=== PATIENT | male | born 1980 | race African-American/Black ===

== ENCOUNTER 2020-02-22 22:49 | Emergency (ER) | payer SELFPAY ==
[2020-02-22] MEDS ORDERED: Sodium Chloride 0.9% 10 ML Syringe FLUSH PRN (23:39)
[2020-02-22] MEDS ORDERED: Sodium Chloride 0.9% 2.5 ML Syringe FLUSH PRN ×2 (23:39)
--- NOTE | 2020-02-23 00:06 | EDM.PDOC ---
ED HPI GENERAL MEDICAL PROBLEM - General Chief Complaint: Cardiovascular Problem Stated Complaint: HIGH BP Time Seen by Provider: 02/22/20 23:28 - History of Present Illness INITIAL COMMENTS - FREE TEXT/NARRATIVE: History of present illness: Patient presents with concerns over his blood pressure he states that he is a diabetic and has high blood pressure but he does not take any medications. He became dizzy yesterday which she describes as when he got up he almost passed out and he was having some mild frontal headache off and on it was atraumatic nonfebrile he states that his blood pressure was high at home on his monitor that he has at home and he was concerned so he came to the emergency department. He denies any specific chest pain no specific shortness of breath no abdominal pain no back pain. Nothing seems to make this better or worse Review of systems: As per history of present illness and below otherwise all systems reviewed and negative. Past medical history: As per history of present illness and as reviewed below otherwise noncontributory. Surgical history: As per history of present illness and as reviewed below otherwise noncontributory. Social history: No reported history of drug or alcohol abuse. Family history: As per history of present illness and as reviewed below otherwise noncontributory. Physical exam: HEENT: Atraumatic, normocephalic, pupils reactive, negative for conjunctival pallor or scleral icterus, mucous membranes moist, throat clear, neck supple, nontender, trachea midline. Lungs: Clear to auscultation, breath sounds equal bilaterally, chest nontender. Heart: S1S2, regular, negative for clicks, rubs, or JVD. Abdomen: Soft, nondistended, nontender. Negative for masses or hepatosplenomegaly. Negative for costovertebral tenderness. Pelvis: Stable nontender. Genitourinary: Deferred. Rectal: Deferred. Extremities: Atraumatic, negative for cords or calf pain. Neurovascular unremarkable. Neuro: Awake, alert, oriented. Cranial nerves II through XII unremarkable. Cerebellum unremarkable. Motor and sensory unremarkable throughout. Exam nonfocal. Diagnostics: [] Therapeutics: [] Impression: [] Plan: EKG cardiac work-up to assess the patient for his near syncopal event. [] Definitive disposition and diagnosis as appropriate pending reevaluation and review of above. head Pain Score (Numeric/FACES): 4 - Related Data Allergies Allergy/AdvReac Type Severity Reaction Status Date / Time No Known Allergies Allergy Verified 02/22/20 23:02 Home Meds: Home Meds lisinopriL [Lisinopril] 10 mg PO DAILY #30 tablet 02/23/20 [Rx] metFORMIN [Glucophage] 500 mg PO BIDMEALS #60 tab 02/23/20 [Rx] Past Medical History - Past Health History Medical/Surgical History: Denies Medical/Surgical History Cardiovascular History: Reports: None, Hypertension Respiratory History: Reports: None Gastrointestinal History: Reports: None Genitourinary History: Reports: None Musculoskeletal History: Reports: None Psychiatric History: Reports: None Endocrine/Metabolic History: Reports: Diabetes, Type II - Infectious Disease History Infectious Disease History: Reports: None Social & Family History - Family History Family Medical History: Noncontributory - Tobacco Use Smoking Status *Q: Current Every Day Smoker Years of Tobacco use: 20 Packs/Tins Daily: 0.5 - Caffeine Use Caffeine Use: Reports: Energy Drinks - Recreational Drug Use Recreational Drug Use: No - Living Situation & Occupation Living situation: Reports: Single Occupation: Unemployed (currently has no job,) ED ROS GENERAL - Review of Systems Review Of Systems: See Below ED EXAM, GENERAL - Physical Exam Exam: See Below EKG INTERPRETATION EKG Interpretation Comments: EKG is normal sinus rhythm rate of 69 bpm some elevated T waves in V2 and V3 these are isolated no ischemic changes read and interpreted by me Course - Vital Signs Text/Narrative:: One-view portable chest read and interpreted by me no acute cardiopulmonary pathology is evident Patient is noted to be hyperglycemic we were going to start him on some insulin and fluids in the ED he will be discharged home on metformin and lisinopril he is to follow-up this week with primary care. As well as the educator senior clinical. Last Recorded V/S: Last Vital Signs Temp 35.8 C L 02/22/20 22:58 Pulse 88 02/22/20 23:52 Resp 18 02/22/20 23:52 BP 148/95 H 02/22/20 23:52 Pulse Ox 98 02/22/20 23:52 - Orders/Labs/Meds Orders: Active Orders 24 hr Category Date Time Status Blood Glucose Check, Bedside [RC] ONETIME Care 02/23/20 01:55 Active EKG Documentation Completion [RC] STAT Care 02/22/20 23:39 Active Sodium Chloride 0.9% [Saline Flush] Med 02/22/20 23:39 Active 10 ml FLUSH ASDIRECTED PRN Sodium Chloride 0.9% [Saline Flush] Med 02/22/20 23:39 Active 2.5 ml FLUSH ASDIRECTED PRN Sodium Chloride 0.9% [Saline Flush] Med 02/22/20 23:39 Active 2.5 ml FLUSH ASDIRECTED PRN Saline Lock Insert [OM.PC] Stat Oth 02/22/20 23:39 Ordered Medication Orders Sodium Chloride (Saline Flush) 2.5 ml FLUSH ASDIRECTED PRN PRN Reason: Keep Vein Open Sodium Chloride (Saline Flush) 2.5 ml FLUSH ASDIRECTED PRN PRN Reason: Keep Vein Open Sodium Chloride (Saline Flush) 10 ml FLUSH ASDIRECTED PRN PRN Reason: Keep Vein Open Labs: Laboratory Tests 02/22/20 02/22/20 02/23/20 Range/Units 23:59 23:59 01:59 WBC 8.31 (4.0-11.0) K/uL RBC 4.86 (4.50-5.90) M/uL Hgb 13.7 (13.0-17.0) g/dL Hct 43.2 (38.0-50.0) % MCV 88.9 (80.0-98.0) fL MCH 28.2 (27.0-32.0) pg MCHC 31.7 (31.0-37.0) g/dL RDW Std Deviation 40.3 (28.0-62.0) fl RDW Coeff of Venecia 13 (11.0-15.0) % Plt Count 281 (150-400) K/uL MPV 10.50 (7.40-12.00) fL Neut % (Auto) 51.9 (48.0-80.0) % Lymph % (Auto) 40.1 H (16.0-40.0) % Rolette % (Auto) 5.9 (0.0-15.0) % Eos % (Auto) 1.9 (0.0-7.0) % Baso % (Auto) 0.2 (0.0-1.5) % Neut # (Auto) 4.3 (1.4-5.7) K/uL Lymph # (Auto) 3.3 H (0.6-2.4) K/uL Rolette # (Auto) 0.5 (0.0-0.8) K/uL Eos # (Auto) 0.2 (0.0-0.7) K/uL Baso # (Auto) 0.0 (0.0-0.1) K/uL Nucleated RBC % 0.0 /100WBC Nucleated RBCs # 0 K/uL Sodium 135 L (136-148) mmol/L Potassium 4.4 (3.5-5.1) mmol/L Chloride 99 (98-107) mmol/L Carbon Dioxide 26.6 (21.0-32.0) mmol/L BUN 15 (7.0-18.0) mg/dL Creatinine 1.2 (0.8-1.3) mg/dL Est Cr Clr Drug Dosing 88.90 mL/min Estimated GFR (MDRD) > 60.0 ml/min Glucose 392 H (74-106) mg/dL POC Glucose 246 H (60-110) mg/dL Calcium 8.6 (8.5-10.1) mg/dL Total Bilirubin 0.6 (0.2-1.0) mg/dL AST 18 (15-37) IU/L ALT 30 (14-63) IU/L Alkaline Phosphatase 119 H (46-116) U/L Troponin I < 0.050 (0.000-0.056) ng/mL Total Protein 7.8 (6.4-8.2) g/dL Albumin 3.6 (3.4-5.0) g/dL Globulin 4.2 H (2.6-4.0) g/dL Albumin/Globulin Ratio 0.9 (0.9-1.6) Meds: Medications Generic Name Dose Route Start Last Admin Trade Name Freq PRN Reason Stop Dose Admin Sodium Chloride 2.5 ml 02/22/20 23:39 Saline Flush FLUSH ASDIRECTED PRN Keep Vein Open Sodium Chloride 2.5 ml 02/22/20 23:39 Saline Flush FLUSH ASDIRECTED PRN Keep Vein Open Sodium Chloride 10 ml 02/22/20 23:39 Saline Flush FLUSH ASDIRECTED PRN Keep Vein Open Discontinued Medications Generic Name Dose Route Start Last Admin Trade Name Freq PRN Reason Stop Dose Admin Aspirin 324 mg 02/22/20 23:39 02/23/20 00:56 Aspirin PO 02/22/20 23:40 324 mg ONETIME ONE Administration Sodium Chloride 1,000 mls @ 999 mls/hr 02/23/20 00:40 02/23/20 00:52 Normal Saline IV 02/23/20 01:40 999 mls/hr .Bolus ONE Administration Insulin Human Isoph/Insulin Regular 12 unit 02/23/20 00:40 02/23/20 00:52 Novolin 70-30 SUBCUT 02/23/20 00:41 Not Given ONETIME ONE Insulin Human Regular 8 unit 02/23/20 00:47 02/23/20 00:52 Novolin R SUBCUT 02/23/20 00:48 8 unit ONETIME ONE Administration Protocol Departure - Departure Time of Disposition: 02:03 Disposition: Home, Self-Care 01 Condition: Good Clinical Impression: Type 2 diabetes mellitus, Hypertension Prescriptions: metFORMIN [Glucophage] 500 mg PO BIDMEALS #60 tab lisinopriL [Lisinopril] 10 mg PO DAILY #30 tablet Instructions: Type 2 Diabetes Mellitus, Diagnosis, Adult, Hypertension, Adult Referrals: PCP,None [Primary Care Provider] - Forms: ED Department Discharge Additional Instructions: The following information is given to patients seen in the emergency department who are being discharged to home. This information is to outline your options for follow-up care. We provide all patients seen in our emergency department with a follow-up referral. The need for follow-up, as well as the timing and circumstances, are variable depending upon the specifics of your emergency department visit. If you don't have a primary care physician on staff, we will provide you with a referral. We always advise you to contact your personal physician following an emergency department visit to inform them of the circumstance of the visit and for follow-up with them and/or the need for any referrals to a consulting specialist. The emergency department will also refer you to a specialist when appropriate. This referral assures that you have the opportunity for follow-up care with a specialist. All of these measure are taken in an effort to provide you with optimal care, which includes your follow-up. Under all circumstances we always encourage you to contact your private physician who remains a resource for coordinating your care. When calling for follow-up care, please make the office aware that this follow-up is from your recent emergency room visit. If for any reason you are refused follow-up, please contact the [facility] Emergency Department at and asked to speak to the emergency department charge nurse. [facility] [address] [place] [id number] [facility] [address] [place] [phone] [facility] [address] [place] [id number] Sepsis Event Note (ED) - Evaluation Sepsis Screening Result: No Definite Risk - Focused Exam Vital Signs: Vital Signs Temp Pulse Resp BP Pulse Ox 02/22/20 23:52 88 18 148/95 H 98 02/22/20 22:58 35.8 C L 95 18 151/104 H 98 - My Orders Last 24 Hours: My Active Orders 02/22/20 23:39 EKG Documentation Completion [RC] STAT Sodium Chloride 0.9% [Saline Flush] 10 ml FLUSH ASDIRECTED PRN Sodium Chloride 0.9% [Saline Flush] 2.5 ml FLUSH ASDIRECTED PRN Sodium Chloride 0.9% [Saline Flush] 2.5 ml FLUSH ASDIRECTED PRN Saline Lock Insert [OM.PC] Stat 02/23/20 01:55 Blood Glucose Check, Bedside [RC] ONETIME - Assessment/Plan Last 24 Hours: My Active Orders 02/22/20 23:39 EKG Documentation Completion [RC] STAT Sodium Chloride 0.9% [Saline Flush] 10 ml FLUSH ASDIRECTED PRN Sodium Chloride 0.9% [Saline Flush] 2.5 ml FLUSH ASDIRECTED PRN Sodium Chloride 0.9% [Saline Flush] 2.5 ml FLUSH ASDIRECTED PRN Saline Lock Insert [OM.PC] Stat 02/23/20 01:55 Blood Glucose Check, Bedside [RC] ONETIME
--- NOTE | 2020-02-23 00:30 | CR ---
Indication: Syncope, hypertension Technique: Chest 1 view Comparison: None Findings/Impression: Cardiovascular and mediastinum: Heart size and vasculature are normal in caliber and appearance. Mediastinum is within normal limits. Lungs and pleural space: Lungs are clear. No sign of infiltrate or mass. No sign of pleural effusion. No pneumothorax. Bones and soft tissues: No significant findings. Dictated by Laisha Barton MD @ Feb 23 2020 12:30AM Signed by Dr. Laisha Barton @ Feb 23 2020 12:30AM
[2020-02-23 00:35] LABS: BLOOD UREA NITROGEN,BUN 15 mg/dL (7.0-18.0); CARBON DIOXIDE,CO2 26.6 mmol/L (21.0-32.0); CHLORIDE,CL 99 mmol/L (98-107); GLUCOSE RANDOM 392 mg/dL (74-106); POTASSIUM,K 4.4 mmol/L (3.5-5.1); SODIUM,NA 135 mmol/L (136-148)
[2020-02-23] MEDS: Aspirin 81 MG Tab.Chew PO ONE ×2 (00:37→00:56)
[2020-02-23] MEDS ORDERED: Insulin NPH/Insulin Regular,Human 70-30 100 Units/ML 10 ML Vial SUBCUT ONE (00:40)
[2020-02-23] MEDS ORDERED: Sodium Chloride 0.9% 1,000 ML IV ONE (00:40)
[2020-02-23] MEDS ORDERED: Insulin Regular, Human 100 Units/ML 10 ML Vial SUBCUT ONE (00:47)
== END 2020-02-23 02:15 | disposition home or self-care (01) ==
LOC: MERGE 22:49 → MW.ED 22:49
DX: I10 Essential (primary) hypertension (principal); E11.9 Type 2 diabetes mellitus without complications; R42 Dizziness and giddiness; F17.210 Nicotine dependence, cigarettes, uncomplicated; Z79.84 Long term (current) use of oral hypoglycemic drugs; Z79.899 Other long term (current) drug therapy
CPT/HCPCS: 36415; 71045; 80053; 82962; 84484; 85025; 93005; 96360; 99284; A9270; J1815; J7030

== ENCOUNTER 2021-04-12 12:34 | Emergency (ER) | payer MEDICAID ==
[2021-04-12] MEDS ORDERED: Sodium Chloride 0.9% 10 ML Syringe FLUSH PRN (13:29)
[2021-04-12] MEDS ORDERED: Sodium Chloride 0.9% 2.5 ML Syringe FLUSH PRN (13:29)
[2021-04-12] MEDS ORDERED: Sodium Chloride 0.9% 1,000 ML IV ONE (13:30)
[2021-04-12] MEDS ORDERED: Glucagon,Human Recombinant 1 MG Vial IM PRN (13:31)
[2021-04-12] MEDS ORDERED: Insulin Regular, Human 100 Units/ML 10 ML Vial IVPUSH ONE (13:31)
[2021-04-12] MEDS ORDERED: 50% Dextrose in Water 50 ML Syringe IVPUSH PRN (13:31)
--- NOTE | 2021-04-12 13:33 | EDM.PDOC ---
ED HPI GENERAL MEDICAL PROBLEM - General Chief Complaint: General Time Seen by Provider: 04/12/21 13:14 - History of Present Illness INITIAL COMMENTS - FREE TEXT/NARRATIVE: History of present illness: [] Patient was previously diagnosed with diabetic and hypertensive has been off his medicines for a while. Gradually he developed polydipsia polyuria polyphagia and weight loss. He has blurry vision at times. He feels like his sugar is high. The patient has no other systemic signs of illness. Review of systems: As per history of present illness and below otherwise all systems reviewed and negative. Past medical history: As per history of present illness and as reviewed below otherwise noncontributory. Surgical history: As per history of present illness and as reviewed below otherwise noncontributory. Social history: No reported history of drug or alcohol abuse. Family history: As per history of present illness and as reviewed below otherwise noncontributory. Physical exam: Constitutional - well developed, well-nourished and in no acute distress HEENT - normocephalic, no evidence of trauma - external nose and mouth normal - no mass in neck and no JVD - mucosae moist EYES - full EOM, PERRL, no icterus - no evidence of inflammation, injection, or drainage Respiratory - no respiratory distress, equal bilateral expansion, lungs clear to auscultation and no abnormal lung sounds Cardiovascular - Regular Rhythm with S1 and S2 appreciated and no murmur, gallop or rub. GI - abdomen soft without distension or organomegaly - normal bowel sounds - no guard or rebound Musculoskeletal no gross deformity of long bones or joints - no tenderness, swelling or edema Neurologic - Alert and oriented times four - CN II-XII grossly intact - motor sensory and coordination symmetrically normal Psychiatric - appropriate mood and affect with normal thought content Hematologic - No petechiae or purpura - mucosa appropriate color and sclera not pale - normal nail bed color and refill Integument - no rash or evidence of trauma - normal turgor Diagnostics: [] Therapeutics: [] Impression: [] Plan: [] Definitive disposition and diagnosis as appropriate pending reevaluation and review of above. headache Pain Score (Numeric/FACES): 5 - Related Data Allergies Allergy/AdvReac Type Severity Reaction Status Date / Time No Known Allergies Allergy Verified 04/12/21 13:03 Home Meds: Home Meds . [No Known Home Meds] 04/12/21 [History] Past Medical History - Past Health History Medical/Surgical History: Denies Medical/Surgical History HEENT History: Reports: None Cardiovascular History: Reports: Hypertension Respiratory History: Reports: None Gastrointestinal History: Reports: None Genitourinary History: Reports: None Musculoskeletal History: Reports: None Neurological History: Reports: None Psychiatric History: Reports: None Endocrine/Metabolic History: Reports: Diabetes, Type II Hematologic History: Reports: None Immunologic History: Reports: None Oncologic (Cancer) History: Reports: None Dermatologic History: Reports: None - Infectious Disease History Infectious Disease History: Reports: None - Past Surgical History Head Surgeries/Procedures: Reports: None Social & Family History - Family History Family Medical History: No Pertinent Family History - Tobacco Use Tobacco Use Status *Q: Current Every Day Tobacco User Years of Tobacco use: 20 Packs/Tins Daily: 1 - Caffeine Use Caffeine Use: Reports: Coffee - Recreational Drug Use Recreational Drug Use: No - Living Situation & Occupation Living situation: Reports: Single Occupation: Unemployed (currently has no job,) ED ROS GENERAL - Review of Systems Review Of Systems: Comprehensive ROS is negative, except as noted in HPI. ED EXAM, GENERAL - Physical Exam Exam: See Below Free Text/Narrative:: My physical exam is in the HPI Course - Vital Signs Text/Narrative:: 1609 hrs. the patient's A1c was over 14. Diabetic teaching was brought to the bedside and she taught patient how to check his sugars and use long acting insulin daily and before meals sliding scale for regular insulin. She gave him supplies to last 3 weeks and advised him to get a clinic appointment before that. She actually got involved in setting up an appointment for the patient early next week. Last Recorded V/S: Last Vital Signs Temp 36.8 C 04/12/21 15:14 Pulse 82 04/12/21 16:08 Resp 20 04/12/21 16:08 BP 131/76 04/12/21 16:08 Pulse Ox 98 04/12/21 16:08 - Orders/Labs/Meds Orders: Active Orders 24 hr Category Date Time Status Blood Glucose Check, Bedside [RC] ONETIME Care 04/12/21 14:19 Active Consult to Diabetic Nurse Specialist [CONS] Stat Cons 04/12/21 15:21 Active Dextrose 50% in Water Med 04/12/21 13:31 Active 50 ml IVPUSH ASDIRECTED PRN Glucagon,Human Recombinant [GlucaGen] Med 04/12/21 13:31 Active 1 mg IM ASDIRECTED PRN Sodium Chloride 0.9% [Saline Flush] Med 04/12/21 13:29 Active 10 ml FLUSH ASDIRECTED PRN Sodium Chloride 0.9% [Saline Flush] Med 04/12/21 13:29 Active 2.5 ml FLUSH ASDIRECTED PRN Saline Lock Insert [OM.PC] Stat Oth 04/12/21 13:29 Ordered Medication Orders Dextrose/Water (50% Dextrose In Water 50 Ml Syringe) 50 ml IVPUSH ASDIRECTED PRN PRN Reason: Hypoglycemia Glucagon (Glucagon,Human Recombinant 1 Mg Vial) 1 mg IM ASDIRECTED PRN PRN Reason: Hypoglycemia Sodium Chloride (Sodium Chloride 0.9% 10 Ml Syringe) 10 ml FLUSH ASDIRECTED PRN PRN Reason: Keep Vein Open Last Admin: 04/12/21 13:45 Dose: 10 ml Documented by: MANDY Sodium Chloride (Sodium Chloride 0.9% 2.5 Ml Syringe) 2.5 ml FLUSH ASDIRECTED PRN PRN Reason: Keep Vein Open Last Admin: 04/12/21 13:45 Dose: 2.5 ml Documented by: MANDY Labs: Laboratory Tests 04/12/21 04/12/21 04/12/21 Range/Units 13:12 13:20 13:20 WBC 7.17 (4.0-11.0) K/uL RBC 5.36 (4.50-5.90) M/uL Hgb 15.3 (13.0-17.0) g/dL Hct 45.6 (38.0-50.0) % MCV 85.1 (80.0-98.0) fL MCH 28.5 (27.0-32.0) pg MCHC 33.6 (31.0-37.0) g/dL RDW Std Deviation 39.0 (28.0-62.0) fl RDW Coeff of [place] 13 (11.0-15.0) % Plt Count 287 (150-400) K/uL MPV 11.00 (7.40-12.00) fL Neut % (Auto) 58.3 (48.0-80.0) % Lymph % (Auto) 34.4 (16.0-40.0) % Ness % (Auto) 5.9 (0.0-15.0) % Eos % (Auto) 1.1 (0.0-7.0) % Baso % (Auto) 0.3 (0.0-1.5) % Neut # (Auto) 4.2 (1.4-5.7) K/uL Lymph # (Auto) 2.5 H (0.6-2.4) K/uL Ness # (Auto) 0.4 (0.0-0.8) K/uL Eos # (Auto) 0.1 (0.0-0.7) K/uL Baso # (Auto) 0.0 (0.0-0.1) K/uL Nucleated RBC % 0.0 /100WBC Nucleated RBCs # 0 K/uL Sodium 129 L (136-148) mmol/L Potassium 4.6 (3.5-5.1) mmol/L Chloride 94 L (98-107) mmol/L Carbon Dioxide 28.0 (21.0-32.0) mmol/L BUN 14 (7.0-18.0) mg/dL Creatinine 1.2 (0.8-1.3) mg/dL Est Cr Clr Drug Dosing 93.40 mL/min Estimated GFR (MDRD) > 60.0 ml/min Glucose 560 H* (74-106) mg/dL POC Glucose > 519 H* (70-99) mg/dL Hemoglobin A1c (4.5 - 6.2) % Calcium 9.0 (8.5-10.1) mg/dL Total Bilirubin 0.5 (0.2-1.0) mg/dL AST 21 (15-37) IU/L ALT 37 (14-63) IU/L Alkaline Phosphatase 144 H (46-116) U/L Total Protein 8.2 (6.4-8.2) g/dL Albumin 3.9 (3.4-5.0) g/dL Globulin 4.3 H (2.6-4.0) g/dL Albumin/Globulin Ratio 0.9 (0.9-1.6) TSH, Ultra Sensitive 1.06 (0.36-3.74) uIU/mL Urine Color Urine Appearance Urine pH (5.0-8.0) Ur Specific [place] (1.001-1.035) Urine Protein (NEGATIVE) mg/dL Urine Glucose (UA) (NEGATIVE) mg/dL Urine Ketones (NEGATIVE) mg/dL Urine Occult Blood (NEGATIVE) Urine Nitrite (NEGATIVE) Urine Bilirubin (NEGATIVE) Urine Urobilinogen (<2.0) EU/dL Ur Leukocyte Esterase (NEGATIVE) Ketones (NEG) 04/12/21 04/12/21 04/12/21 Range/Units 13:20 13:20 13:52 WBC (4.0-11.0) K/uL RBC (4.50-5.90) M/uL Hgb (13.0-17.0) g/dL Hct (38.0-50.0) % MCV (80.0-98.0) fL MCH (27.0-32.0) pg MCHC (31.0-37.0) g/dL RDW Std Deviation (28.0-62.0) fl RDW Coeff of [place] (11.0-15.0) % Plt Count (150-400) K/uL MPV (7.40-12.00) fL Neut % (Auto) (48.0-80.0) % Lymph % (Auto) (16.0-40.0) % Ness % (Auto) (0.0-15.0) % Eos % (Auto) (0.0-7.0) % Baso % (Auto) (0.0-1.5) % Neut # (Auto) (1.4-5.7) K/uL Lymph # (Auto) (0.6-2.4) K/uL Ness # (Auto) (0.0-0.8) K/uL Eos # (Auto) (0.0-0.7) K/uL Baso # (Auto) (0.0-0.1) K/uL Nucleated RBC % /100WBC Nucleated RBCs # K/uL Sodium (136-148) mmol/L Potassium (3.5-5.1) mmol/L Chloride (98-107) mmol/L Carbon Dioxide (21.0-32.0) mmol/L BUN (7.0-18.0) mg/dL Creatinine (0.8-1.3) mg/dL Est Cr Clr Drug Dosing mL/min Estimated GFR (MDRD) ml/min Glucose (74-106) mg/dL POC Glucose (70-99) mg/dL Hemoglobin A1c >14.0 H (4.5 - 6.2) % Calcium (8.5-10.1) mg/dL Total Bilirubin (0.2-1.0) mg/dL AST (15-37) IU/L ALT (14-63) IU/L Alkaline Phosphatase (46-116) U/L Total Protein (6.4-8.2) g/dL Albumin (3.4-5.0) g/dL Globulin (2.6-4.0) g/dL Albumin/Globulin Ratio (0.9-1.6) TSH, Ultra Sensitive (0.36-3.74) uIU/mL Urine Color YELLOW Urine Appearance CLEAR Urine pH 6.0 (5.0-8.0) Ur Specific [place] 1.010 (1.001-1.035) Urine Protein NEGATIVE (NEGATIVE) mg/dL Urine Glucose (UA) >=1000 (NEGATIVE) mg/dL Urine Ketones TRACE H (NEGATIVE) mg/dL Urine Occult Blood NEGATIVE (NEGATIVE) Urine Nitrite NEGATIVE (NEGATIVE) Urine Bilirubin NEGATIVE (NEGATIVE) Urine Urobilinogen 0.2 (<2.0) EU/dL Ur Leukocyte Esterase NEGATIVE (NEGATIVE) Ketones NEGATIVE (NEG) 04/12/21 Range/Units 14:15 WBC (4.0-11.0) K/uL RBC (4.50-5.90) M/uL Hgb (13.0-17.0) g/dL Hct (38.0-50.0) % MCV (80.0-98.0) fL MCH (27.0-32.0) pg MCHC (31.0-37.0) g/dL RDW Std Deviation (28.0-62.0) fl RDW Coeff of [place] (11.0-15.0) % Plt Count (150-400) K/uL MPV (7.40-12.00) fL Neut % (Auto) (48.0-80.0) % Lymph % (Auto) (16.0-40.0) % Ness % (Auto) (0.0-15.0) % Eos % (Auto) (0.0-7.0) % Baso % (Auto) (0.0-1.5) % Neut # (Auto) (1.4-5.7) K/uL Lymph # (Auto) (0.6-2.4) K/uL Ness # (Auto) (0.0-0.8) K/uL Eos # (Auto) (0.0-0.7) K/uL Baso # (Auto) (0.0-0.1) K/uL Nucleated RBC % /100WBC Nucleated RBCs # K/uL Sodium (136-148) mmol/L Potassium (3.5-5.1) mmol/L Chloride (98-107) mmol/L Carbon Dioxide (21.0-32.0) mmol/L BUN (7.0-18.0) mg/dL Creatinine (0.8-1.3) mg/dL Est Cr Clr Drug Dosing mL/min Estimated GFR (MDRD) ml/min Glucose (74-106) mg/dL POC Glucose 349 H (70-99) mg/dL Hemoglobin A1c (4.5 - 6.2) % Calcium (8.5-10.1) mg/dL Total Bilirubin (0.2-1.0) mg/dL AST (15-37) IU/L ALT (14-63) IU/L Alkaline Phosphatase (46-116) U/L Total Protein (6.4-8.2) g/dL Albumin (3.4-5.0) g/dL Globulin (2.6-4.0) g/dL Albumin/Globulin Ratio (0.9-1.6) TSH, Ultra Sensitive (0.36-3.74) uIU/mL Urine Color Urine Appearance Urine pH (5.0-8.0) Ur Specific [place] (1.001-1.035) Urine Protein (NEGATIVE) mg/dL Urine Glucose (UA) (NEGATIVE) mg/dL Urine Ketones (NEGATIVE) mg/dL Urine Occult Blood (NEGATIVE) Urine Nitrite (NEGATIVE) Urine Bilirubin (NEGATIVE) Urine Urobilinogen (<2.0) EU/dL Ur Leukocyte Esterase (NEGATIVE) Ketones (NEG) Meds: Medications Generic Name Dose Route Start Last Admin Trade Name Freq PRN Reason Stop Dose Admin Dextrose/Water 50 ml 04/12/21 13:31 50% Dextrose In Water 50 Ml Syringe IVPUSH ASDIRECTED PRN Hypoglycemia Glucagon 1 mg 09/10/21 13:31 Glucagon,Human Recombinant 1 Mg Vial IM ASDIRECTED PRN Hypoglycemia Sodium Chloride 10 ml 04/12/21 13:29 04/12/21 13:45 Sodium Chloride 0.9% 10 Ml Syringe FLUSH 10 ml ASDIRECTED PRN Administration Keep Vein Open Sodium Chloride 2.5 ml 04/12/21 13:29 04/12/21 13:45 Sodium Chloride 0.9% 2.5 Ml Syringe FLUSH 2.5 ml ASDIRECTED PRN Administration Keep Vein Open Discontinued Medications Generic Name Dose Route Start Last Admin Trade Name Freq PRN Reason Stop Dose Admin Sodium Chloride 1,000 mls @ 1,000 mls/hr 04/12/21 13:30 04/12/21 13:44 Normal Saline IV 04/12/21 14:29 1,000 mls/hr .Bolus ONE Administration Insulin Human Regular 10 unit 04/12/21 13:31 04/12/21 13:44 Insulin Regular, Human 100 Units/Ml 10 Ml Vial IVPUSH 04/12/21 13:32 10 units ONETIME ONE Administration Protocol Departure - Departure Time of Disposition: 16:09 Disposition: Home, Self-Care 01 Condition: Good Clinical Impression: Type II diabetes mellitus, Hyperglycemia, Hyperglycemia - Discharge Information Instructions: Insulin Treatment for Diabetes Mellitus, Hyperglycemia, [id number] Referrals: PCP,None [Primary Care Provider] - Forms: ED Department Discharge Additional Instructions: Please call for an appointment early because we need to clinic to work you in before you run out of your supplies and insulin so they can regulate and prescribe more. [facility] - Primary Care [address] [place] [id number] [facility] [address] [place] [id number] The following information is given to patients seen in the emergency department who are being discharged to home. This information is to outline your options for follow-up care. We provide all patients seen in our emergency department w ith a follow-up referral. The need for follow-up, as well as the timing and circumstances, are variable depending upon the specifics of your emergency department visit. If you don't have a primary care physician on staff, we will provide you with a referral. We always advise you to contact your personal physician following an emergency department visit to inform them of the circumstance of the visit and for follow-up with them and/or the need for any referrals to a consulting specialist. The emergency department will also refer you to a specialist when appropriate. This referral assures that you have the opportunity for follow-up care with a specialist. All of these measure are taken in an effort to provide you with optimal care, which includes your follow-up. Under all circumstances we always encourage you to contact your private physician who remains a resource for coordinating your care. When calling for follow-up care, please make the office aware that this follow-up is from your recent emergency room visit. If for any reason you are refused follow-up, please contact the [facility] Emergency Department at and asked to speak to the emergency department charge nurse. Sepsis Event Note (ED) - Evaluation Sepsis Screening Result: No Definite Risk - Focused Exam Vital Signs: Vital Signs Temp Pulse Resp BP Pulse Ox 04/12/21 16:08 82 20 131/76 98 04/12/21 15:14 36.8 C 82 18 138/72 97 04/12/21 14:22 82 18 138/72 97 04/12/21 13:50 95 18 140/88 97 04/12/21 13:03 36.1 C 111 H 20 145/91 H 96 - My Orders Last 24 Hours: My Active Orders 04/12/21 13:29 Sodium Chloride 0.9% [Saline Flush] 10 ml FLUSH ASDIRECTED PRN Sodium Chloride 0.9% [Saline Flush] 2.5 ml FLUSH ASDIRECTED PRN Saline Lock Insert [OM.PC] Stat 04/12/21 13:31 Dextrose 50% in Water 50 ml IVPUSH ASDIRECTED PRN Glucagon,Human Recombinant [GlucaGen] 1 mg IM ASDIRECTED PRN 04/12/21 14:19 Blood Glucose Check, Bedside [RC] ONETIME 04/12/21 15:21 Consult to Diabetic Nurse Specialist [CONS] Stat - Assessment/Plan Last 24 Hours: My Active Orders 04/12/21 13:29 Sodium Chloride 0.9% [Saline Flush] 10 ml FLUSH ASDIRECTED PRN Sodium Chloride 0.9% [Saline Flush] 2.5 ml FLUSH ASDIRECTED PRN Saline Lock Insert [OM.PC] Stat 04/12/21 13:31 Dextrose 50% in Water 50 ml IVPUSH ASDIRECTED PRN Glucagon,Human Recombinant [GlucaGen] 1 mg IM ASDIRECTED PRN 04/12/21 14:19 Blood Glucose Check, Bedside [RC] ONETIME 04/12/21 15:21 Consult to Diabetic Nurse Specialist [CONS] Stat
[2021-04-12 14:03] LABS: BLOOD UREA NITROGEN,BUN 14 mg/dL (7.0-18.0); CHLORIDE,CL 94 mmol/L (98-107); POTASSIUM,K 4.6 mmol/L (3.5-5.1); SODIUM,NA 129 mmol/L (136-148)
[2021-04-12 14:07] LABS: GLUCOSE RANDOM 560 mg/dL (74-106)
[2021-04-12 15:03] LABS: HEMOGLOBIN A1C >14.0 %
== END 2021-04-12 16:18 | disposition home or self-care (01) ==
LOC: MW.ED 12:34
DX: E11.65 Type 2 diabetes mellitus with hyperglycemia (principal); I10 Essential (primary) hypertension; Z72.0 Tobacco use
CPT/HCPCS: 36415; 80053; 81003; 82009; 82947; 83036; 84443; 85025; 99284; J7030

== ENCOUNTER 2022-07-11 14:38 | Emergency (ER) | payer MEDICAID | END 2022-07-11 17:50 | disposition home or self-care (01) | LOC: MW.ED 14:38 | DX: B34.9 Viral infection, unspecified (principal); E11.9 Type 2 diabetes mellitus without complications; I10 Essential (primary) hypertension; F17.210 Nicotine dependence, cigarettes, uncomplicated; Z79.899 Other long term (current) drug therapy | CPT/HCPCS: 99284 ==

== ENCOUNTER 2022-10-01 13:40 | Emergency (ER) | payer MEDICAID ==
[2022-10-01] MEDS ORDERED: Sodium Chloride 0.9% 2.5 ML Syringe FLUSH PRN (17:04)
[2022-10-01] MEDS ORDERED: Sodium Chloride 0.9% 10 ML Syringe FLUSH PRN (17:04)
== END 2022-10-01 17:23 | disposition home or self-care (01) ==
LOC: MW.ED 13:40
DX: I10 Essential (primary) hypertension (principal); E11.9 Type 2 diabetes mellitus without complications; Z91.14 Patient's other noncompliance with medication regimen; Z79.899 Other long term (current) drug therapy
CPT/HCPCS: 99284

== ENCOUNTER 2023-01-23 10:41 | Emergency (ER) | payer BC, MEDICAID ==
[2023-01-23] MEDS ORDERED: Sodium Chloride 0.9% 1,000 ML IV ONE (11:05)
[2023-01-23 11:27] LABS: BASOPHILS PERCENT AUTO 0.3 % (0.0-1.5); EOSINOPHILS ABSOLUTE AUTO 0.1 K/uL (0.0-0.7); EOSINOPHILS PERCENT AUTO 0.8 % (0.0-7.0); HEMATOCRIT 43.5 % (38.0-50.0); HEMOGLOBIN 14.2 g/dL (13.0-17.0); LYMPHOCYTES ABSOLUTE AUTO 2.1 K/uL (0.6-2.4); LYMPHOCYTES PERCENT AUTO 29.8 % (16.0-40.0); MEAN CORPUSCULAR HEMOGLOBIN 29.5 pg (27.0-32.0); MEAN CORPUSCULAR HGB CONC 32.6 g/dL (31.0-37.0); MEAN CORPUSCULAR VOLUME 90.2 fL (80.0-98.0); MONOCYTES ABSOLUTE AUTO 0.4 K/uL (0.0-0.8); MONOCYTES PERCENT AUTO 5.6 % (0.0-15.0); NEUTROPHILS ABSOLUTE AUTO 4.5 K/uL (1.4-5.7); NEUTROPHILS PERCENT AUTO 63.5 % (48.0-80.0); NRBC ABSOLUTE 0 K/uL; PLATELET COUNT,PLT 335 K/uL (150-400); RED BLOOD CELL COUNT 4.82 M/uL (4.50-5.90); WHITE BLOOD CELL COUNT,WBC 7.15 K/uL (4.0-11.0)
[2023-01-23 11:28] LABS: APPEARANCE,URINE CLEAR; BILIRUBIN,URINE NEGATIVE (NEGATIVE); COLOR,URINE YELLOW; GLUCOSE,URINE NEGATIVE (NEGATIVE); KETONES,URINE NEGATIVE (NEGATIVE); LEUKOCYTE ESTERASE,URINE NEGATIVE (NEGATIVE); NITRITE,URINE NEGATIVE (NEGATIVE); OCCULT BLOOD,URINE NEGATIVE (NEGATIVE); PH,URINE 5.5 (5.0-8.0); PROTEIN,URINE NEGATIVE (NEGATIVE); UROBILINOGEN,URINE 0.2 EU/dL (<2.0)
[2023-01-23 11:44] LABS: HEMOGLOBIN A1C 7.3 %
[2023-01-23 11:57] LABS: A/G RATIO 0.9 (0.9-1.6); BILIRUBIN TOTAL 0.6 mg/dL (0.2-1.0); CALCIUM 9.5 mg/dL (8.5-10.1); CARBON DIOXIDE,CO2 24.2 mmol/L (21.0-32.0); CREATININE 1.1 mg/dL (0.8-1.3); EST CRCL DRUG DOSING (CG) 99.88 mL/min; POTASSIUM,K 4.1 mmol/L (3.5-5.1); PROTEIN TOTAL,TP 8.4 g/dL (6.4-8.2)
== END 2023-01-23 12:55 | disposition home or self-care (01) ==
LOC: MW.ED 10:41
DX: I10 Essential (primary) hypertension (principal); E11.9 Type 2 diabetes mellitus without complications; Z79.4 Long term (current) use of insulin; Z79.899 Other long term (current) drug therapy
CPT/HCPCS: 36415; 80053; 81003; 83036; 85025; 96360; 99284; J7030

== ENCOUNTER 2023-01-25 12:49 | Emergency (ER) | payer MEDICAID ==
[2023-01-25] MEDS ORDERED: Sodium Chloride 0.9% 10 ML Syringe FLUSH PRN (13:37)
[2023-01-25] MEDS ORDERED: Sodium Chloride 0.9% 2.5 ML Syringe FLUSH PRN (13:37)
[2023-01-25] MEDS ORDERED: Octyl 2-Cyanoacrylate 1 g/1 mL 1 APPLIC PEN TOP ONE (13:38)
[2023-01-25] MEDS ORDERED: Octyl 2-Cyanoacrylate 0.5 g/0.5 mL 1 APPLIC TUBE TOP ONE (13:38)
[2023-01-25] MEDS ORDERED: Sodium Chloride 0.9% 1,000 ML IV ONE (13:38)
[2023-01-25 14:11] LABS: BASOPHILS PERCENT AUTO 0.3 % (0.0-1.5); EOSINOPHILS ABSOLUTE AUTO 0.1 K/uL (0.0-0.7); HEMATOCRIT 44.6 % (38.0-50.0); HEMOGLOBIN 14.8 g/dL (13.0-17.0); LYMPHOCYTES ABSOLUTE AUTO 2.9 K/uL (0.6-2.4); LYMPHOCYTES PERCENT AUTO 33.1 % (16.0-40.0); MEAN CORPUSCULAR HEMOGLOBIN 29.7 pg (27.0-32.0); MEAN CORPUSCULAR HGB CONC 33.2 g/dL (31.0-37.0); MEAN CORPUSCULAR VOLUME 89.4 fL (80.0-98.0); MONOCYTES ABSOLUTE AUTO 0.6 K/uL (0.0-0.8); MONOCYTES PERCENT AUTO 6.7 % (0.0-15.0); NEUTROPHILS ABSOLUTE AUTO 5.1 K/uL (1.4-5.7); NEUTROPHILS PERCENT AUTO 58.9 % (48.0-80.0); NRBC ABSOLUTE 0 K/uL; PLATELET COUNT,PLT 359 K/uL (150-400); RED BLOOD CELL COUNT 4.99 M/uL (4.50-5.90); WHITE BLOOD CELL COUNT,WBC 8.72 K/uL (4.0-11.0)
[2023-01-25 15:03] LABS: A/G RATIO 0.9 (0.9-1.6); ALBUMIN 3.6 g/dL (3.4-5.0); BILIRUBIN TOTAL 0.8 mg/dL (0.2-1.0); CALCIUM 8.8 mg/dL (8.5-10.1); CARBON DIOXIDE,CO2 26.7 mmol/L (21.0-32.0); CREATININE 1.1 mg/dL (0.8-1.3); EST CRCL DRUG DOSING (CG) 99.88 mL/min; PROTEIN TOTAL,TP 7.7 g/dL (6.4-8.2)
[2023-01-25] MEDS ORDERED: amLODIPine 5 MG Tab PO ONE (15:32)
[2023-01-25 17:09] LABS: APPEARANCE,URINE CLEAR; BILIRUBIN,URINE NEGATIVE (NEGATIVE); COLOR,URINE YELLOW; GLUCOSE,URINE NEGATIVE (NEGATIVE); KETONES,URINE NEGATIVE (NEGATIVE); LEUKOCYTE ESTERASE,URINE NEGATIVE (NEGATIVE); NITRITE,URINE NEGATIVE (NEGATIVE); OCCULT BLOOD,URINE NEGATIVE (NEGATIVE); PROTEIN,URINE NEGATIVE (NEGATIVE); UROBILINOGEN,URINE 0.2 EU/dL (<2.0)
== END 2023-01-25 18:31 | disposition home or self-care (01) ==
LOC: MW.ED 12:49
DX: S01.81XA Laceration without foreign body of other part of head, initial encounter (principal); I10 Essential (primary) hypertension; E11.9 Type 2 diabetes mellitus without complications; F17.210 Nicotine dependence, cigarettes, uncomplicated; Z79.4 Long term (current) use of insulin; W19.XXXA Unspecified fall, initial encounter; W22.8XXA Striking against or struck by other objects, initial encounter
CPT/HCPCS: 12011; 36415; 70450; 80053; 81003; 84484; 85025; 93005; 96360; 99284; A9270; J3490; J7030; 93010

== ENCOUNTER 2023-08-21 15:50 | Emergency (ER) | payer MEDICAID ==
[2023-08-21 17:26] LABS: CORONAVIRUS COVID-19 NAA NEGATIVE (NEGATIVE); INFLUENZA A NAA NEGATIVE (NEGATIVE); INFLUENZA B NAA NEGATIVE (NEGATIVE)
== END 2023-08-21 18:21 | disposition home or self-care (01) ==
LOC: MW.ED 15:50
DX: B34.9 Viral infection, unspecified (principal); I10 Essential (primary) hypertension; E11.9 Type 2 diabetes mellitus without complications; Z79.899 Other long term (current) drug therapy; Z79.4 Long term (current) use of insulin
CPT/HCPCS: 0240U; 99283